=== PATIENT | female | born 1975 | race African-American/Black ===

== ENCOUNTER 2018-05-23 07:53 | Emergency (ER) | payer MEDICAID, OTHER ==
[2018-05-23] MEDS ORDERED: NS 0.9% 1000 ML* 1,000 ML IV ONE (08:21)
[2018-05-23] MEDS ORDERED: Ondansetron INJ* 2 MG/ML VIAL IV ONE (08:22)
[2018-05-23 08:49] LABS: ABS Basophils 0.1 10^3/ul (0-0.2); ABS Eosinophils 0.1 10^3/ul (0-0.6); ABS Lymphocytes 2.6 10^3/ul (1.0-4.8); ABS Monocytes 0.7 10^3/ul (0-0.8); ABS Neutrophils 8.2 10^3/ul (1.5-7.7); ABS Nucleated RBC 0 10^3/ul; Eosinophil % 0.9 %; Hematocrit 34 % (35-47); Hemoglobin 11.1 g/dl (12.0-16.0); Lymphocyte % 21.9 %; Mean Corpuscular HGB Conc 33 g/dl (31-36); Mean Corpuscular Hemoglobin 30 pg (27-31); Mean Corpuscular Volume 91 fL (80-97); Mean Platelet Volume 7.7 fL (7.4-10.4); Nucleated Red Blood Cells % 0; Platelet Count 391 10^3/ul (150-450); Red Blood Count 3.74 10^6/ul (4.00-5.40); Red Cell Distribution Width 15 % (10.5-15); White Blood Count 11.6 10^3/ul (3.5-10.8)
--- NOTE | 2018-05-23 08:50 | ED ---
Influenza-Like Illness - HPI Summary HPI Summary: Patient presents with flulike symptoms over the past 2-3 days. She reports she started with diarrhea which has since subsided. However today she now has nausea with vomiting. She developed a headache yesterday and this continues today. She took Motrin yesterday which helped her headache. She denies fevers , chills, rhinorrhea, sore throat, ear pain or pressure, sneezing, coughing, chest pain, abdominal pain, numbness, tingling, weakness. She has been around other coworkers with flulike symptoms which seemed to be more respiratory however she does have one friend that had some GI symptoms. No new foods, beverages etc. reported to be ingested. Does not believe she is . Denies previous ab surgeries. - History of Current Complaint Chief Complaint: EDNauseaVomitDiarrh Time Seen by Provider: 05/23/18 08:21 Hx Obtained From: Patient - Allergy/Home Medications Allergies/Adverse Reactions: Allergies Allergy/AdvReac Type Severity Reaction Status Date / Time Penicillins Allergy Severe Swelling Verified 05/23/18 08:02 Sulfa (Sulfonamide Allergy Severe Swelling Verified 05/23/18 08:02 Antibiotics) PMH/Surg Hx/FS Hx/Imm Hx Previously Healthy: Yes Endocrine/Hematology History: Denies: Hx Anticoagulant Therapy, Hx Blood Disorders, Hx Diabetes, Hx Thyroid Disease, Hx Anemia, Autoimmune Disease Cardiovascular History: Denies: Hx Hypertension Infectious Disease History: No Infectious Disease History: Denies: Hx Clostridium Difficile, Traveled Outside the [place] in Last 30 Days - Social History Occupation: Employed Full-time Lives: Alone Alcohol Use: None Hx Substance Use: No Substance Use Type: Reports: None Hx Tobacco Use: Yes - not currently Smoking Status (MU): Former Smoker Review of Systems Positive: Fatigue. Negative: Fever, Chills Eyes: Negative ENT: Negative Cardiovascular: Negative Respiratory: Negative Positive: Vomiting, Diarrhea, Nausea. Negative: Abdominal Pain Genitourinary: Negative Musculoskeletal: Negative Skin: Negative Positive: Headache. Negative: Weakness, Paresthesia, Numbness, Syncope, Slurred Speech Psychological: Normal All Other Systems Reviewed And Are Negative: Yes Physical Exam Triage Information Reviewed: Yes Vital Signs On Initial Exam: Initial Vitals Temp Pulse Resp BP Pulse Ox 98.5 F 96 14 131/94 98 05/23/18 07:59 05/23/18 07:59 05/23/18 07:59 05/23/18 07:59 05/23/18 07:59 Vital Signs Reviewed: Yes Appearance: Positive: Ill-Appearing - apears mildly fatigued, lights out upon entrance, pt resting on stretcher, Obese Skin: Positive: Warm, Skin Color Reflects Adequate Perfusion - no rash, Dry Head/Face: Positive: Normal Head/Face Inspection Eyes: Positive: Normal, EOMI, DARIAN, Conjunctiva Clear. Negative: Conjunctiva Inflammed, Discharge ENT: Positive: Normal ENT inspection, Hearing grossly normal, Pharynx normal - mucosa somewhat dry, TMs normal, Uvula midline. Negative: Nasal congestion, Nasal drainage, Tonsillar swelling, Tonsillar exudate, Trismus, Muffled voice Neck: Positive: Supple, Nontender, No Lymphadenopathy Respiratory/Lung Sounds: Positive: Clear to Auscultation, Breath Sounds Present. Negative: Rales, Rhonchi, Wheezes Cardiovascular: Positive: Normal, RRR, S1, S2. Negative: Murmur, Rub Abdomen Description: Positive: Nontender, No Organomegaly, Soft Bowel Sounds: Positive: Present Musculoskeletal: Positive: Normal, Strength/ROM Intact Neurological: Positive: Normal, Sensory/Motor Intact, Alert, Oriented to Person Place, Time, CN Intact II-III Psychiatric: Positive: Normal Diagnostics - Vital Signs Vital Signs Temp Pulse Resp BP Pulse Ox 05/23/18 07:59 98.5 F 96 14 131/94 98 - Laboratory Result Diagrams: 05/23/18 08:32 05/23/18 08:32 Lab Statement: Any lab studies that have been ordered have been reviewed, and results considered in the medical decision making process. Re-Evaluation - Re-Evaluation First Eval Change: Improved - s/p NS, zofran and toradol - able to tolerate PO liquids Flu Symptom Course/Dx - Course Course Of Treatment: Influenza: neg. Labs: mildly elevated WBC. U/A: + blood, + bacteria but no sx and just ended menstrual cycle. SUspect viral syndrome - supportive care and return if danger s/sx present - Diagnoses Provider Diagnoses: Viral syndrome Discharge - Sign-Out/Discharge Documenting (check all that apply): Patient Departure - Discharge Plan Condition: Stable Disposition: HOME Prescriptions: Ondansetron ODT TAB* [Zofran 4 MG Odt TAB*] 8 mg PO Q8H PRN #9 tab.odt PRN Reason: Nausea Patient Education Materials: Viral Syndrome (ED) Forms: *Work Release Referrals: Yessica Shannon MD [Primary Care Provider] - Additional Instructions: Rest Stay hydrated Take nausea medication as needed *If you develop intractable vomiting, diarrhea, high fever, difficult breathing or swallowing, return to ED - Billing Disposition and Condition Condition: STABLE Disposition: Home
[2018-05-23 09:01] LABS: Activated Partial Thrombo Time 31.3 seconds (26.0-36.3); INR 0.96 (0.77-1.02)
[2018-05-23 09:09] LABS: Albumin 3.1 g/dL (3.2-5.2); Albumin/Globulin Ratio 1.1 (1-3); BUN/Creatinine Ratio 14.8 (8-20); C Reactive Protein 7.72 mg/L (<8.01); Calcium 8.6 mg/dL (8.6-10.3); EGFR Non-African American 108.1 (>60); Globulin 2.8 g/dL (2-4); Magnesium 1.9 mg/dL (1.9-2.7); Potassium 3.8 mmol/L (3.5-5.0); Total Bilirubin 0.3 mg/dL (0.2-1.0); Total Protein 5.9 g/dL (6.4-8.9)
[2018-05-23 09:14] LABS: HCG Pregnancy 0.7 mIU/mL
[2018-05-23] MEDS ORDERED: Ketorolac INJ* 30 MG/ML 1 ML VIAL IV PUSH ONE (09:16)
[2018-05-23 09:54] LABS: Urine Appearance Clear; Urine Bacteria 1+ (Absent); Urine Bilirubin Negative (Negative); Urine Blood 1+ (Negative); Urine Color Straw; Urine Glucose Negative (Negative); Urine Ketones Negative (Negative); Urine Nitrite Negative (Negative); Urine Protein Negative (Negative); Urine Red Blood Cell Trace(0-2/hpf) (Absent); Urine Specific Gravity 1.011 (1.010-1.030); Urine Urobilinogen Negative (Negative); Urine White Blood Cell Trace(0-5/hpf) (Absent)
== END 2018-05-23 11:18 | disposition home or self-care (01) ==
LOC: ED 07:53
DX: B34.9 Viral infection, unspecified (principal); Z87.891 Personal history of nicotine dependence; Z88.0 Allergy status to penicillin; Z88.2 Allergy status to sulfonamides
CPT/HCPCS: 36415; 80053; 81003; 81015; 83605; 83690; 83735; 84702; 85025; 85610; 85730; 86140; 87086; 96361; 96374; 96375; 99282; J1885; J2405

== ENCOUNTER 2019-06-04 16:31 | Emergency (ER) | payer BC, OTHER ==
--- NOTE | 2019-06-04 18:48 | ED ---
Abdominal Pain/Female - HPI Summary HPI Summary: Patient is a 44 y/o F presenting to the ED for a chief complaint of LLQ abdominal pain for the last week. The abdominal pain is described as a cramping sensation. Patient reports an episode of diarrhea on 06/03/19, urinary burning, and urinary frequency. She denies fever, nausea, vomiting, vaginal bleeding, or vaginal discharge. She reports similar pain in the past with a UTI. No aggravating or alleviating factors are reported. She denies a history of nephrolithiasis or renal disease. PMHx is significant for anemia. FMHx is significant for DM and HTN. - History of Current Complaint Chief Complaint: EDAbdPain Stated Complaint: ABD PAIN PER PT Time Seen by Provider: 06/04/19 18:44 Hx Obtained From: Patient Onset/Duration: Sudden Onset, Still Present Timing: Constant Severity Initially: Severe Severity Currently: Severe Pain Intensity: 10 Pain Scale Used: 0-10 Numeric Location: Discrete At: LLQ Radiates: No Character: Cramping Aggravating Factor(s): Nothing Alleviating Factor(s): Nothing Associated Signs and Symptoms: Positive: Urinary Symptoms - Urinary frequency and urinary burning, Diarrhea. Negative: Fever, Vaginal Bleeding, Vaginal Discharge, Nausea, Vomiting Allergies/Adverse Reactions: Allergies Allergy/AdvReac Type Severity Reaction Status Date / Time Penicillins Allergy Severe Swelling Verified 05/23/18 08:02 Sulfa (Sulfonamide Allergy Severe Swelling Verified 05/23/18 08:02 Antibiotics) Home Medications: Home Medications Albuterol HFA INHALER* [Ventolin HFA Inhaler*] 1 puff INH Q6H PRN 06/04/19 [ History Confirmed 06/04/19] PMH/Surg Hx/FS Hx/Imm Hx Previously Healthy: Yes Endocrine/Hematology History: Reports: Hx Anemia Denies: Hx Anticoagulant Therapy, Hx Blood Disorders, Hx Diabetes, Hx Thyroid Disease Cardiovascular History: Denies: Hx Hypertension History: Denies: Hx Kidney Stones, Hx Renal Disease Sensory History: Denies: Hx Legally Blind, Hx Deafness Opthamlomology History: Denies: Hx Legally Blind EENT History: Denies: Hx Deafness - Surgical History Surgical History: None Surgery Procedure, Year, and Place: None Infectious Disease History: No Infectious Disease History: Denies: Hx Clostridium Difficile, Traveled Outside the [place] in Last 30 Days - Family History Known Family History: Positive: Hypertension, Diabetes - Social History Occupation: Employed Full-time Alcohol Use: None Hx Substance Use: No Substance Use Type: Reports: None Hx Tobacco Use: Yes - not currently Smoking Status (MU): Former Smoker Review of Systems Negative: Fever Positive: Abdominal Pain - LLQ, Diarrhea. Negative: Vomiting, Nausea Positive: burning - Urinary, frequency - Urinary. Negative: discharge - Vaginal , other - Negative vaginal discharge All Other Systems Reviewed And Are Negative: Yes Physical Exam - Summary Physical Exam Summary: Constitutional: Well-developed, Well-nourished, Alert. (-) Distressed Skin: Warm, Dry HENT: Normocephalic; Atraumatic Eyes: Conjunctiva normal Neck: Musculoskeletal ROM normal neck. (-) JVD, (-) Stridor, (-) Nuchal rigidity Cardio: Rhythm regular, rate normal, Heart sounds normal; Intact distal pulses; Radial pulses are 2+ and symmetric. (-) Murmur Pulmonary/Chest wall: Effort normal. (-) Respiratory distress, (-) Wheezes, (-) Rales Abd: Soft, (-) tenderness, (-) Distension, (-) Guarding, (-) Rebound, LLQ pain. Musculoskeletal: (-) Edema Lymph: (-) Cervical adenopathy Neuro: Alert, Oriented x3 Psych: Mood and affect Normal Triage Information Reviewed: Yes Vital Signs On Initial Exam: Initial Vitals Temp Pulse Resp BP Pulse Ox 98.9 F 107 18 170/105 97 06/04/19 16:53 06/04/19 16:53 06/04/19 16:53 06/04/19 16:53 06/04/19 16:53 Vital Signs Reviewed: Yes Procedures - Sedation Patient Received Moderate/Deep Sedation with Procedure: No Diagnostics - Vital Signs Vital Signs Temp Pulse Resp BP Pulse Ox 06/04/19 18:30 98.2 F 100 18 128/95 98 06/04/19 16:53 98.9 F 107 18 170/105 97 - Laboratory Result Diagrams: 06/04/19 18:45 06/04/19 18:45 Lab Statement: Any lab studies that have been ordered have been reviewed, and results considered in the medical decision making process. Re-Evaluation - Re-Evaluation First Eval Re-Evaluation Time: 19:42 Change: Unchanged Comment: At 19:42, patient was unable to have an IV placed and is declining IV contrast. She states she is willing to try oral contrast. Abdominal Pain Fem Course/Dx - Course Course Of Treatment: 44 y/o F p/w LLQ abdominal pain. - VSS, exam w mild LLQ tenderness. Reporting diarrhea. WBC 15. Also reporting some dysuria, UA w 1+ blood. Denies vaginal bleeding or discharge, do not suspect TOA/PID. concern for diverticulitis vs colitis. Will check CT a/p. Patient had 2 IVs placed and both did not work well, she declined further IV placement. Will check CT a/p w oral contrast. - Diagnoses Provider Diagnoses: LLQ abdominal pain, Diarrhea Discharge ED - Sign-Out/Discharge Documenting (check all that apply): Sign-Out Patient Signing out patient TO: Gabriella Amador - Patient is a sign-out at 22: 00 on 06/04/[address] Kain Bledsoe MD to Dr. Gabriella Amador MD at shift change, pending imaging results, further workup, and disposition. - Discharge Plan Condition: Stable Disposition: HOME Patient Education Materials: Acute Abdominal Pain (ED) Print Language: GIBRALTARIAN Referrals: Jason Thomas MD [Primary Care Provider] - Additional Instructions: Follow-up with your TUBE [facility]ANCER for evaluation of the fibroid. - Billing Disposition and Condition Condition: STABLE Disposition: Home - Attestation Statements Document Initiated by Cesario: Yes Documenting Scribe: Ivonne Lujan Provider For Whom Cesario is Documenting (Include Credential): Kain Bledsoe MD Scribe Attestation: Ivonne Grande, scribed for Kain Bledsoe MD on 06/05/19 at 0956. Scribe Documentation Reviewed: Yes Provider Attestation: The documentation as recorded by the Ivonne hernandez accurately reflects the service I personally performed and the decisions made by me, Kain Bledsoe MD Status of Scribe Document: Viewed
[2019-06-04 18:59] LABS: ABS Basophils 0.2 10^3/ul (0-0.2); ABS Eosinophils 0.3 10^3/ul (0-0.6); ABS Monocytes 0.6 10^3/ul (0-0.8); ABS Neutrophils 9.2 10^3/ul (1.5-7.7); Eosinophil % 1.9 %; Hematocrit 34 % (35-47); Hemoglobin 11.9 g/dL (12.0-16.0); Lymphocyte % 32.6 %; Mean Corpuscular HGB Conc 35 g/dL (31-36); Mean Corpuscular Hemoglobin 30 pg (27-31); Mean Corpuscular Volume 88 fL (80-97); Mean Platelet Volume 7.6 fL (7.4-10.4); Nucleated Red Blood Cells % 0.1; Platelet Count 426 10^3/uL (150-450); Red Blood Count 3.91 10^6 /uL (3.70-4.87); Red Cell Distribution Width 15 % (10-15); White Blood Count 15.3 10^3/uL (3.5-10.8)
[2019-06-04 19:17] LABS: Albumin 3.9 g/dL (3.2-5.2); Anion Gap 5 mmol/L (2-11); CO2 Carbon Dioxide 29 mmol/L (22-32); Chloride 104 mmol/L (101-111); Potassium 3.7 mmol/L (3.5-5.0); Sodium 138 mmol/L (135-145)
[2019-06-04 19:23] LABS: ALT 9 U/L (7-52); AST 12 U/L (13-39); Albumin/Globulin Ratio 1.3 (1-3); Alkaline Phosphatase 78 U/L (34-104); BUN/Creatinine Ratio 8.3 (8-20); Blood Urea Nitrogen 5 mg/dL (6-24); C Reactive Protein 16.36 mg/L (<8.01); EGFR African American 132.7 (>60); EGFR Non-African American 109.6 (>60); Globulin 2.9 g/dL (2-4); Glucose 114 mg/dL (70-100); Total Protein 6.8 g/dL (6.4-8.9)
[2019-06-04 19:26] LABS: Urine Appearance Clear; Urine Bilirubin Negative (Negative); Urine Blood 1+ (Negative); Urine Color Yellow; Urine Glucose Negative (Negative); Urine Ketones Negative (Negative); Urine Nitrite Negative (Negative); Urine Protein Negative (Negative); Urine Specific Gravity 1.012 (1.010-1.030); Urine Urobilinogen Negative (Negative)
[2019-06-04 19:27] LABS: Urine Bacteria Absent (Absent); Urine Red Blood Cell Trace(0-2/hpf) (Absent); Urine Squamous Epithelial Cell Present (Absent); Urine White Blood Cell Trace(0-5/hpf) (Absent)
[2019-06-04 19:29] LABS: HCG Pregnancy < 0.60 mIU/mL
--- NOTE | 2019-06-04 21:57 | ED ---
Progress - Progress Note Progress Note: Gabriella LemusLela - Patient is a sign-out at 22:00 on 06/04/[address] Kain Bledsoe MD to Dr. Gabriella Amador MD at shift change, pending imaging results, further workup, and disposition. - Results/Orders Results/Orders: CT Abd/Pelvis IMPRESSION: 1. No visible renal, ureteral or bladder calculi. 2. There is a likely intramural uterine fibroid in the uterine fundus measuring 7.7 cm maximum dimension. ED physician has reviewed this report. Re-Evaluation - Re-Evaluation First Eval Re-Evaluation Time: 19:42 Change: Unchanged Comment: At 19:42, patient was unable to have an IV placed and is declining IV contrast. She states she is willing to try oral contrast. Course/Dx - Course Course Of Treatment: Gabriella Amador - Patient is a sign-out at 22:00 on 06/04/[address] Kain Bledsoe MD to Dr. Gabriella Amador MD at shift change, pending imaging results, further workup, and disposition. CT abd/pelvis shows 1. No visible renal, ureteral or bladder calculi. 2. There is a likely intramural uterine fibroid in the uterine fundus measuring 7.7 cm maximum dimension. On re-evaluation, the patient is sitting comfortably and in no acute distress. She states she is feeling better and ready to go home. Disposition: discharge. - Diagnoses Provider Diagnoses: LLQ abdominal pain, Diarrhea Discharge ED - Sign-Out/Discharge Documenting (check all that apply): Patient Departure - discharge - Discharge Plan Condition: Stable Disposition: HOME Patient Education Materials: Acute Abdominal Pain (ED) Print Language: ALGERIAN Referrals: Jason Thomas MD [Primary Care Provider] - Additional Instructions: Follow-up with your RESIDENT INSPECTOR for evaluation of the fibroid. - Billing Disposition and Condition Condition: STABLE Disposition: Home - Attestation Statements Document Initiated by Scribe: Yes Documenting Scribe: Gume Orozco Provider For Whom Scribe is Documenting (Include Credential): Gabriella Vogel MD Scribe Attestation: Gume Grande, scribed for Gabriella Amador MD on 06/06/19 at 0434. Scribe Documentation Reviewed: Yes Provider Attestation: The documentation as recorded by the scribe, Gume Orozco accurately reflects the service I personally performed and the decisions made by me, Gabriella Amador MD Status of Scribe Document: Viewed
[2019-06-05 00:36] VITALS: BP 148/99
== END 2019-06-05 00:36 | disposition home or self-care (01) ==
LOC: ED 16:31
DX: R10.32 Left lower quadrant pain (principal); R19.7 Diarrhea, unspecified; R35.0 Frequency of micturition; R30.0 Dysuria; Z87.440 Personal history of urinary (tract) infections; Z88.0 Allergy status to penicillin; Z88.2 Allergy status to sulfonamides; Z87.891 Personal history of nicotine dependence
CPT/HCPCS: 36415; 74176; 80053; 81003; 81015; 83605; 83690; 84702; 85025; 86140; 87086; 99282